=== PATIENT | male | born 1985 | race Caucasian/White ===

== ENCOUNTER 2022-07-26 21:55 | Emergency (ER) | payer OTHER, SELFPAY ==
[2022-07-26 22:08] VITALS: BP 110/90; PULSE 95; RESP 18; TEMP 36.8; O2SAT 99; BMI 21.1
[2022-07-26 22:34] VITALS: BP 110/90; PULSE 95; RESP 18; TEMP 36.8; O2SAT 99
--- NOTE | 2022-07-27 00:11 | ED.MALEGU ---
HPI - Male Genitourinary General Date Seen: 07/27/22 Chief complaint: Urogenital Problems, Male Stated complaint: Difficulty Urinating Time Seen by Provider: 07/26/22 21:58 Source: patient and family Mode of arrival: ambulatory Limitations: no limitations History of Present Illness HPI Narrative: Patient is a 37-year-old gentleman who presents here for evaluation of not peeing today, he was seen in urgent care in [place] today, there laboratory work was done in including a blood test, and he was not dehydrated, he is not really drinking any water today, but tells me he really has not urinated. He denies any dysuria frequency of urination, when he does urinate there is no discharge, he has no past history of STDs or anything else he denies any abdominal pain, there is no history of fevers chills, he normally goes to [facility], but came here because usually there was a long wait there. He is accompanied by his mother. 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 - Eating disorder, unspecified (ICD-10) Autism ?F84.0 - Autistic disorder (ICD-10) GERD (gastroesophageal reflux disease) ?K21.9 - Gastro-esophageal reflux disease without esophagitis (ICD-10) Hematuria ?R31.9 - Hematuria, unspecified (ICD-10) History of anal fissures ?Z87.19 - Personal history of other diseases of the digestive system (ICD-10) Nephrolithiasis ?N20.0 - Calculus of kidney (ICD-10) Surgical History History of bone marrow biopsy ?Z98.890 - Other specified postprocedural states (ICD-10) History of hand surgery ?Z98.890 - Other specified postprocedural states (ICD-10) Social History Smoking Status: Never smoker Second hand tobacco smoke exposure: No How often do you have a drink containing alcohol: never How often do you have six or more drinks on one occasion: Never AUDIT-C Alcohol total score: 0 Non-prescribed substance use: denies use Exam Narrative: Exam Narrative: Patient is seen in room 6 he is in no apparent distress, is abdomen is soft, there is no dullness to suggest he has a distended abdomen, his bladder scan shows less than 6 mL. Normal male genitalia is appreciated. Const: Vital Signs, click to edit/add: Vital Signs - 24 hr 07/26/22 22:08 07/26/22 22:34 Temperature 98.2 F 98.2 F Pulse Rate [Right Pulse Oximeter] 95 95 Respiratory Rate 18 18 Blood Pressure [Ri ght Upper Arm] 110/90 H 110/90 H Pulse Oximetry 99 99 Oxygen Delivery Me thod Room Air Room Air Documenting provider has reviewed patient's vital signs: yes Course Vital Signs Vital signs: Initial Vital Signs Temperature 98.2 F 07/26/22 22:08 Temperature Source Temporal Artery Scan 07/26/22 22:08 Pulse Rate 95 07/26/22 22:08 Respiratory Rate 18 07/26/22 22:08 Blood Pressure 110/90 H 07/26/22 22:08 Blood Pressure Mean 96 07/26/22 22:08 Blood Pressure Position Sitting 07/26/22 22:08 Pulse Oximetry 99 07/26/22 22:08 Oxygen Delivery Method Room Air 07/26/22 22:08 Vital Signs Temperature 98.2 F 07/26/22 22:08 Pulse Rate 95 07/26/22 22:08 Respiratory Rate 18 07/26/22 22:08 Blood Pressure 110/90 H 07/26/22 22:08 Pulse Oximetry 99 07/26/22 22:08 Oxygen Delivery Method Room Air 07/26/22 22:08 Temperature 98.2 F 07/26/22 22:34 Pulse Rate 95 07/26/22 22:34 Respiratory Rate 18 07/26/22 22:34 Blood Pressure 110/90 H 07/26/22 22:34 Pulse Oximetry 99 07/26/22 22:34 Oxygen Delivery Method Room Air 07/26/22 22:34 MDM - Male Genitourinary MDM Narrative Medical decision making narrative: I discussed with the patient can stay and we can eventually get him to urinate everyone eventually will, then we can check him for bladder infection if he wants or eat go home drink water and re-presented if he thinks he has a bladder infection, I did reassure him that he is not an acute retention, given his findings on today's examination I think it would be fine for him to go. Medical Records Attestation: I reviewed the patient's medical records. Discharge Plan Discharge Clinical Impression: Urinary anomaly, Anxiety Patient Disposition: Home w/ Parent or Adult Condition: Stable Additional Instructions: Home rest continue to monitor I would take more fluids today, no evidence of dehydration, return as needed fevers chills nausea vomiting or other symptoms. Activity Level: No Restrictions Discharge Diet: Regular Stand Alone Forms: [facility] [employer] Info Instructions
== END 2022-07-26 22:44 | disposition home or self-care (01) ==
LOC: ED 22:41
PROVIDERS: Emergency Provider Family Medicine; PCP Family Medicine
DX: R39.198 Other difficulties with micturition (principal); F41.9 Anxiety disorder, unspecified
CPT/HCPCS: 99283